=== PATIENT | female | born 1965 | race Caucasian/White ===

== ENCOUNTER 2018-01-30 14:15 | Emergency (ER) | payer OTHER ==
[2018-01-30 14:25] VITALS: PULSE 74; TEMP 97; BMI 30.2
--- NOTE | 2018-01-30 14:47 | PDOC ---
History of Present Illness - General Chief Complaint: Chest Pain Stated Complaint: CHEST PAIN Time Seen by Provider: 01/30/18 14:34 History Source: Patient Exam Limitations: No Limitations - History of Present Illness Initial Comments: 01/30/18 14:47 52 year old woman with past medical history of a.fib, hyperlipidemia, chronic low back pain, sciatica, L shoulder inflammation and L carpal tunnel who presents with 3 days of L sided upper chest and L shoulder pain that onset 1 day after she was vacuumed her entire house with a heavy duty vacuum paper cleaner. She denies any nausea or diaphoresis at the time of pain onset. She state the pain is worse with deep breathing, laughing, movement of the arm and occasionally worsening to palpation of the L chest and shoulder. The patient states the pain radiates to the just below the L axilla but does not feel like a ripping or tearing travelling to her back. She denies any shortness of breath , headaches, feelings of chest tightness, pressure or palpitations. She denies any recent long travels or OCP use. She denies any vomiting, diarrhea, constipation, fever or recent illnesses. She as no other complaints at bedside. PMHX: as in HPI Meds: see below Allergies: NKDA Tob: none Etoh: none Rec drugs: none PCP: Ravinder Past History - Past Medical History Allergies/Adverse Reactions: Allergies Allergy/AdvReac Type Severity Reaction Status Date / Time No Known Allergies Allergy Verified 01/30/18 14:25 Home Medications: Ambulatory Orders Pravastatin Sodium [Pravachol -] 40 mg PO HS 08/19/14 Meclizine HCl [Antivert -] 25 mg PO TID #30 tablet 08/21/14 Cyclobenzaprine HCl [Flexeril -] 10 mg PO TID #21 tablet 01/30/18 Naproxen 500 mg PO BID #14 tablet 01/30/18 Anemia: No Asthma: No Cardiac Disorders: Yes (missed heart beats, tachycardia) COPD: No GI Disorders: Yes (mild gerd\) HTN: Yes (only sob) Hypercholesterolemia: Yes (hyperlipidemia) Thyroid Disease: Yes - Immunization History Immunization Up to Date: No - Suicide/Smoking/Psychosocial Hx Smoking Status: No Smoking History: Never smoked Have you smoked in the past 12 months: No Number of Cigarettes Smoked Daily: 0 Hx Alcohol Use: No Drug/Substance Use Hx: No Substance Use Type: None Hx Substance Use Treatment: No Review of Systems - Review of Systems Able to Perform ROS?: Yes Is the patient limited Welsh proficient: No Constitutional: No: Chills, Diaphoresis, Fever HEENTM: No: Blurred Vision, Tinnitus Respiratory: No: Cough, Orthopnea, Shortness of Breath Cardiac (ROS): No: Chest Pain, Palpitations ABD/GI: No: Constipated, Diarrhea, Nausea, Vomiting : No: Burning, Dysuria, Hematuria Musculoskeletal: Yes: Muscle Pain Neurological: No: Headache, Numbness, Tingling *Physical Exam - Vital Signs Last Vital Signs Temp Pulse Resp BP Pulse Ox 97 F L 74 18 183/99 H 99 01/30/18 14:18 01/30/18 14:18 01/30/18 14:18 01/30/18 14:18 01/30/18 14:18 - Physical Exam Comments: GENERAL: Awake, alert, and fully oriented, in no acute distress HEAD: No signs of trauma, normocephalic, atraumatic EYES: EOMI, sclera anicteric, conjunctiva clear ENT: oropharynx clear without exudates. Moist mucosa NECK: Normal ROM, supple, no lymphadenopathy, LUNGS: No distress, speaks full sentences, clear to auscultation bilaterally HEART: Regular rate and rhythm, normal S1 and S2, no murmurs, rubs or gallops, peripheral pulses normal and equal bilaterally. ABDOMEN: Soft, nontender, normoactive bowel sounds. No guarding, no rebound. No masses EXTREMITIES : Patient holding L arm close to body. FROM, slight tendernes to palpation below and anterior to the axilla, no acromonion tenderness to palpation, normal sensation, Normal inspection, Normal range of motion, no edema. No clubbing or cyanosis. NEUROLOGICAL: Cranial nerves II through XII grossly intact. Normal speech, normal gait, no focal sensorimotor deficits SKIN: Warm, Dry, normal turgor, no rashes or lesions noted Medical Decision Making - Medical Decision Making 52 year old woman with past medical history of a.fib, hyperlipidemia, chronic low back pain, sciatica, L shoulder inflammation and L carpal tunnel who presents with 3 days of L sided upper chest and L shoulder pain that onset 1 day after she was vacuumed her entire house with a heavy duty vacuum paper cleaner. She denies any nausea or diaphoresis at the time of pain onset. She state the pain is worse with deep breathing, laughing, movement of the arm and occasionally worsening to palpation of the L chest and shoulder. DDX including but not limited to: musculoskeletal strain vs fracture vs arrythmia W/U: - EKG - L shoulder XR TX: - Toradol, Flexeril, Tylenol ED Course: Patient given pain reliever and muscle relaxers. Patient reassessed. FROM of L shoulder. Notes improvement of muscle spasm, but still exhibits some spasm and discomfort at bedside. Patient reassessed approx 35min later, reports continued improvement of symptoms and desire to go home. At bedside patient appears more comfortable and relaxed. Did not exhibit muscle spasms or pain. FROM of L shoulder, palpable pulses, normal sensation. Patient given follow up with orthopedics and prescription for flexeril and naproxen. Patient stable for discharge. Informed of all lab and imaging results. Given follow up instructions and strict return precautions. Patient expressed understanding and agrees to plan. *DC/Admit/Observation/Transfer Diagnosis at time of Disposition: Muscle strain - Discharge Dispostion Disposition: HOME Condition at time of disposition: Stable Decision to Admit order: No - Prescriptions Prescriptions: Cyclobenzaprine HCl [Flexeril -] 10 mg PO TID #21 tablet Naproxen 500 mg PO BID #14 tablet - Referrals Referrals: Stephany Castellon [Primary Care Provider] - John Hemphill MD [Staff Physician] - - Patient Instructions Printed Discharge Instructions: DI for Atypical Chest Pain, DI for Shoulder Pain Additional Instructions: You were seen in the ED for complaints of L chest/shoulder pain. In the ED you were evaluated with imaging. Your results were unremarkable. There does not appear to be an acute need for immediate hospitalization. You are advised to follow up with your Primary Care Physician within 1 week. You were given a referral to Orthopedics and are advised to follow up within 1 week. You were given a prescription for muscle relaxants and are advised to take the medication as directed. Return to the ED immediately if you experience worsening chest pain, nausea, sweating, chest pain travelling to the back, loss of consciousness, numbness or tingling in the hands, muscle weakness in the arms or legs. - Post Discharge Activity
--- NOTE | 2018-01-30 14:53 | PDOC ---
Attending Attestation - Resident Resident Name: Jean-PierreStevan morenoie - ED Attending Attestation I have performed the following: I have examined & evaluated the patient, The case was reviewed & discussed with the resident, I agree w/resident's findings & plan, Exceptions are as noted - HPI HPI: 01/30/18 15:17 52-year-old female patient with history of hypertension, Tachycardia, GERD, hyperlipidemia, thyroid disorder presents with left shoulder pain for several days. 5 days ago, the patient was vacuuming vigorously around the house. Noted the following day that she was having reproducible left shoulder pain upon movement. And felt muscle spasm. Reported the pain had persisted and worsened with palpation. She has had prior injuries her left shoulder in the past. Denies numbness or weakness. Denies midsternal chest pain or short of breath. Denies dyspnea on exertion. - Physicial Exam PE: 01/30/18 15:20 GENERAL: Awake, alert, and fully oriented, in no acute distress HEAD: No signs of trauma EYES: PERRLA, EOMI, sclera anicteric, conjunctiva clear ENT: Auricles normal inspection, hearing grossly normal, nares patent, oropharynx clear without exudates. Moist mucosa NECK: Normal ROM, supple, no lymphadenopathy, JVD, or masses LUNGS: Breath sounds equal, clear to auscultation bilaterally. No wheezes, and no crackles HEART: Regular rate and rhythm, normal S1 and S2, no murmurs, rubs or gallops EXTREMITIES: Normal range of motion, no edema. No clubbing or cyanosis. No cords, erythema, or tenderness LUE: Left shoulder with full range of motion. TTP left anterior shoulder, reproducible with movements. Sensation and strength intact in the median/radian/ ulnar/deltoid distribution. 2+ radial pulse. NEUROLOGICAL: Cranial nerves II through XII grossly intact. Normal speech, SKIN: Warm, Dry, normal turgor, no rashes or lesions noted. - Medical Decision Making 01/30/18 15:21 Vital Signs Temp Pulse Resp BP Pulse Ox 97 F L 74 18 183/99 H 99 01/30/18 14:18 10 14:18 10 14:18 01/30/18 14:18 01/30/18 14:18 Impression: This is consistent with muscle skeletal left shoulder pain. Likely components of muscle spasm. Left shoulder x-ray. Pain control and muscle relaxants reassess. If the x-rays negative and the patient reports having better , the patient can be discharged home with orthopedics follow-up. 01/30/18 16:05 Shoulder xray reviewed by me, pending official radiology read. No fractures. Heart Score/ECG Review #1 ECG reviewed & interpreted by me at: 14:20 01/30/18 14:52 NSR 66, no std/adin, T wave flat III, normal axis, normal intervals, QTC 423 msec
[2018-01-30] MEDS ORDERED: CYCLOBENZAPRINE HCL 10 MG TABLET (FP) PO ONE (14:56)
[2018-01-30] MEDS ORDERED: KETOROLAC TROMETHAMINE 30 MG/1 ML VIAL IM ONE (14:56)
[2018-01-30] MEDS ORDERED: ACETAMINOPHEN 325 MG TABLET (FP) PO ONE (15:16)
[2018-01-30] MEDS ORDERED: ACETAMINOPHEN 325 MG TABLET (FP) ONE (15:24)
[2018-01-30] MEDS ORDERED: KETOROLAC TROMETHAMINE 30 MG/1 ML VIAL ONE (15:25)
[2018-01-30] MEDS ORDERED: diazePAM 5 MG TABLET PO ONE (16:08)
[2018-01-30 17:43] VITALS: BP 156/72
--- NOTE | 2018-01-31 10:26 | EKG ---
Test Reason : Blood Pressure : / mmHG Vent. Rate : 066 BPM Atrial Rate : 066 BPM P-R Int : 136 ms QRS Dur : 074 ms QT Int : 404 ms P-R-T Axes : 052 032 030 degrees QTc Int : 423 ms NORMAL SINUS RHYTHM NORMAL ECG WHEN COMPARED WITH ECG OF 19-AUG-2014 08:17, NO SIGNIFICANT CHANGE WAS FOUND Confirmed by KLEBER RESENDIZ MD ([id number]) on 01/31/2018 10:26:36 AM Referred By: Confirmed By:KLEBER RESENDIZ MD
== END 2018-01-30 17:44 | disposition home or self-care (01) ==
LOC: JER 14:15
PROC: 3E0233Z Introduction of Anti-inflammatory into Muscle, Percutaneous Approach (ICD-10-PCS; principal; 2018-01-30)
DX: S46.812A Strain of other muscles, fascia and tendons at shoulder and upper arm level, left arm, initial encounter (principal); S29.011A Strain of muscle and tendon of front wall of thorax, initial encounter; X50.0XXA Overexertion from strenuous movement or load, initial encounter; Y93.E3 Activity, vacuuming; Y92.018 Other place in single-family (private) house as the place of occurrence of the external cause; Y99.8 Other external cause status; I48.91 Unspecified atrial fibrillation; E78.5 Hyperlipidemia, unspecified; M54.5 Low back pain; G89.29 Other chronic pain
CPT/HCPCS: 73030-TC-LT-FY; 93005; 93010; 96372; 99284-25

== ENCOUNTER 2024-03-30 19:34 | Emergency (ER) | payer OTHER ==
[2024-03-30 19:44] VITALS: PULSE 60; RESP 18; BMI 27.0
[2024-03-30 20:56] LABS: BASO % 0.4 % (0-2.0); HEMATOCRIT 40.7 % (32.4-45.2); HEMOGLOBIN 13.9 GM/dL (10.7-15.3); LYMPH % 18.4 % (8-40); MCH 29.1 pg (25.7-33.7); MCHC 34.1 g/dl (32.0-36.0); MEAN CELL VOLUME 85.4 fl (80-96); MEAN PLT VOLUME 8.3 fl (7.5-11.1); MONO % 5.4 % (3.8-10.2); NEUT % 74.8 % (42.8-82.8); PLATELET COUNT 268 10^3/uL (134-434); RBC 4.77 M/mm3 (3.60-5.2); RDW 13.7 % (11.6-15.6); WHITE BLOOD COUNT 6.9 K/mm3 (4.0-10.0)
[2024-03-30 21:00] LABS: EPI CELLS 2 /uL (0-25.1); HYALINE CASTS 0 /uL (0-3.1); PH,URINE 6.5 (5.0-8.0); URINE APPEARANCE CLEAR; URINE BACTERIA 9 /uL (0-1359); URINE BILIRUBIN NEGATIVE (NEGATIVE); URINE COLOR YELLOW; URINE GLUCOSE (UA) NEGATIVE (NEGATIVE); URINE KETONE NEGATIVE (NEGATIVE); URINE LEUK ESTERASE NEGATIVE (NEGATIVE); URINE NITRITE NEGATIVE (NEGATIVE); URINE PROTEIN 1+ (NEGATIVE); URINE RBC 66 /uL (0-23.9); URINE UROBILINOGEN 0.2 mg/dL (0.2-1.0); URINE WBC 2 /uL (0-25.8)
[2024-03-30 21:47] LABS: POTASSIUM 4.2 mmol/L (3.5-5.1)
[2024-03-30 21:50] VITALS: BP 158/85; TEMP 97.2
[2024-03-30 21:50] LABS: CALCIUM 9.4 mg/dL (8.5-10.1)
[2024-03-30 21:51] LABS: BLOOD UREA NITROGEN 21.5 mg/dL (7-18)
[2024-03-30 21:54] LABS: CREATININE 0.7 mg/dL (0.55-1.3)
[2024-03-30 21:56] LABS: BILIRUBIN,TOTAL 0.4 mg/dL (0.2-1); TOT PROT 7.2 g/dl (6.4-8.2)
== END 2024-03-30 22:29 | disposition home or self-care (01) ==
LOC: JER 19:34
DX: I10 Essential (primary) hypertension (principal); R42 Dizziness and giddiness
CPT/HCPCS: 36415; 80053; 81003; 84484; 85025; 93005; 93010; 99284-25